=== PATIENT | female | born 1980 | race Caucasian/White ===

== ENCOUNTER → 2021-09-15 | Outpatient (REF) | payer BC | LOC: M SFHCDERM 17:13 | PROVIDERS: ATTEND Nurse Practitioner Family | DX: C44.41 Basal cell carcinoma of skin of scalp and neck (principal); D48.5 Neoplasm of uncertain behavior of skin ==

== ENCOUNTER → 2022-01-24 | Outpatient (REF) | payer BC | LOC: M SFHCDERM 17:31 | PROVIDERS: ATTEND Nurse Practitioner Family | DX: D22.62 Melanocytic nevi of left upper limb, including shoulder (principal) ==

== ENCOUNTER → 2022-01-26 | Outpatient (REF) | payer BC | LOC: M SFHCDERM 14:09 | PROVIDERS: ATTEND Dermatology | DX: L90.5 Scar conditions and fibrosis of skin (principal) ==

== ENCOUNTER → 2022-02-01 | Outpatient (CLI) | payer BC ==
[~2022-02-01] MED LIST: BACT400T PO; DIAZ5TAB PO; PRENTAB9 PO
[2022-02-01 10:18] VITALS: BP 102/62
== END ==
LOC: M WHCPRO 08:45
PROVIDERS: ATTEND Surgery
DX: R92.8 Other abnormal and inconclusive findings on diagnostic imaging of breast (principal); N63.20 Unspecified lump in the left breast, unspecified quadrant

== ENCOUNTER 2022-03-14 06:01 | Day surgery (SDC) | payer BC ==
[~2022-03-14] VITALS: Ht 170.2 cm; Wt 66.2 kg
[~2022-03-14 06:01] MED LIST changes: +HEPARIN SOD (PORCINE) 5000UNITS/ML 1ML VIAL/SYRINGE SQ ONE; +VITMTA PO; +ceFAZolin SOD 2 GM in IV 1 EA IV ONE
[2022-03-14] MEDS ORDERED: fentaNYL 100 MCG/2 ML INJECTION As Ordered ONE (07:05)
[2022-03-14] MEDS ORDERED: SCOPOLAMINE 1MG TRANSDERMAL PATCH TOP ONE (07:05)
[2022-03-14] MEDS ORDERED: LR 1,000 ML IV SCH ×2 (07:05→09:20)
[2022-03-14] MEDS ORDERED: LIDOCAINE 2% 100MG/5ML SDV (FOR ANES.) As Ordered ONE (07:06)
[2022-03-14] MEDS ORDERED: ONDANSETRON 4MG 2ML VIAL As Ordered ONE (07:06)
[2022-03-14] MEDS ORDERED: propofoL 200 MG/20 ML VIAL As Ordered ONE (07:06)
[2022-03-14] MEDS ORDERED: MIDAZOLAM INJ 2MG/2ML VIAL As Ordered ONE (07:06)
[2022-03-14] MEDS ORDERED: KETOROLAC 60MG 2ML VIAL As Ordered ONE (07:07)
[2022-03-14] MEDS ORDERED: LIDOCAINE 1% SDV 30ML VIAL As Ordered ONE (07:20)
[2022-03-14] MEDS ORDERED: BUPIVACAINE HCL 0.25% 30ML VIAL As Ordered ONE (07:20)
[2022-03-14] MEDS ORDERED: ePHEDrine SULFATE 25 MG/5 ML(5MG/ML) SYRINGE As Ordered ONE (08:08)
[2022-03-14] MEDS ORDERED: ACETAMINOPHEN 1000MG 100ML IV BAG As Ordered ONE (08:14)
[2022-03-14] MEDS ORDERED: METOCLOPRAMIDE INJ 10MG/2ML VIAL IV PRN (09:20)
[2022-03-14] MEDS ORDERED: ONDANSETRON 4MG 2ML VIAL IV PRN (09:20)
[2022-03-14] MEDS ORDERED: HYDROMORPHONE HCL 0.5 MG/ 0.5 ML SYRINGE IV PRN (09:20)
[2022-03-14] MEDS ORDERED: fentaNYL 100 MCG/2 ML INJECTION IV PRN (09:20)
[2022-03-14] MEDS ORDERED: OXYC-1 PO (09:30)
[2022-03-14] MEDS: oxyCODONE 5MG TAB PO PRN ×2 (09:56→10:24)
[2022-03-14 11:25] VITALS: BP 118/63
== END 2022-03-14 11:25 | disposition home or self-care (01) ==
LOC: M SDC 06:01
PROVIDERS: ATTEND Surgery
DX: D24.2 Benign neoplasm of left breast (principal); Z80.3 Family history of malignant neoplasm of breast; Z91.048 Other nonmedicinal substance allergy status
CPT/HCPCS: 19120; 19285; 36415; 76942; 81025; 86850; 86900; 86901; 88307; A4648; J0131; J0690; J1100; J1170; J1644; J2250; J2405; J2765; J3010; S0020

== ENCOUNTER → 2023-02-27 | Outpatient (CLI) | payer BC ==
[~2023-02-27] MED LIST changes: -HEPARIN SOD (PORCINE) 5000UNITS/ML 1ML VIAL/SYRINGE SQ ONE; +OXYC-1 PO; -ceFAZolin SOD 2 GM in IV 1 EA IV ONE
== END ==
LOC: M PLALAB 15:58
PROVIDERS: ATTEND Nurse Practitioner Women's Health
DX: C44.41 Basal cell carcinoma of skin of scalp and neck (principal); R92.8 Other abnormal and inconclusive findings on diagnostic imaging of breast